=== PATIENT | female | born 1950 | race Caucasian/White ===

== ENCOUNTER 2022-09-01 02:03 | Emergency (ER) | payer MEDICARE, MEDICAID, SELFPAY ==
[2022-09-01 02:05] VITALS: BP 193/85; PULSE 70; RESP 18; TEMP 36.8; O2SAT 98; BMI 30.7
--- NOTE | 2022-09-01 02:40 | RAD_ITS ---
STUDY: X-RAY - RIGHT SHOULDER REASON FOR EXAM: Female, 72 years old. Pain. TECHNIQUE: 3 view(s) of the shoulder. COMPARISON: None. FINDINGS: No visible fracture. No osseous destruction. Alignment anatomic. Mild degenerative changes. Soft tissues unremarkable. RAD/Shoulder min 2 Views IMPRESSION: No acute osseous abnormality. Electronically Signed: Brian Sampson MD at 3:30 EDT ,
[2022-09-01] MEDS: Orphenadrine 60 MG/2 ML Ampul IM (02:50)
[2022-09-01] MEDS: Morphine 4 MG/ML Syringe IM (02:50)
[2022-09-01] MEDS: Ondansetron ODT 4 MG Tablet 8 MG PO (02:54)
--- NOTE | 2022-09-01 03:18 | EDS_ITS ---
HPI History of Present Illness Chief Complaint: Upper Extremity Injury Informant: patient Onset/Context/Timing Onset: Yesterday Context: Sudden Onset (Started while at rest, no movement of anything to trigger the pain that she can recall) Timing: Continuous Current Severity: Severe Maximum Severity: Severe Worsened by: Movement right upper extremity Relieved by: Remaining still Associated Symptoms Associated Symptoms: Negative for Parasthesia, Weakness or Loss of Funtion Narrative Narrative: Patient states she has had pain in her right shoulder/shoulder blade for 2 or 3 years. It is much worse, starting like this 2 days ago. Same pain though. She indicates that it is just medial to the scapula on the right. She does not have anterior shoulder pain. Sometimes the pain radiates into her right upper arm anteriorly, but it is not doing that today. PFSH [facility] Medical History Breast cancer Hypothyroidism Home Medications aspirin 81 mg chewable tablet 81 mg PO DAILY 09/01/22 [History Last Taken Unknown] atorvastatin 20 mg tablet 20 mg PO QHS 09/01/22 [History Last Taken Unknown] cranberry 400 mg capsule 400 mg PO BID 09/01/22 [History Last Taken Unknown] exemestane 25 mg tablet (Aromasin) 25 mg PO DAILY 09/01/22 [History Last Taken Unknown] hydrocodone-acetaminophen 5-325mg 5mg-325mg 1 tab PO Q6H PRN PRN Pain 2 days #8 TABLETS 09/01/22 [Rx Last Taken Unknown] levothyroxine 100 mcg tablet 100 mcg PO DAILY 09/01/22 [History Last Taken Unknown] orphenadrine citrate 100 mg tablet,extended release 100 mg PO Q12H PRN muscle spasm #10 tabs 09/01/22 [Rx Last Taken Unknown] Allergy/AdvReac Type Severity Reaction Status Date / Time No Known Allergies Allergy Verified 09/01/22 02:41 Social History Smoking Status: Never smoker ROS ROS ED Constitutional Constitutional ED: Denies chills or fever(s) Cardiovascular Cardiovascular: Denies chest pain Respiratory/Chest Respiratory/Chest: Denies cough or dyspnea Musculoskeletal Musculoskeletal: Reports extremity pain; Denies neck pain Integumentary Denies Abrasions, rash or wounds Neurologic Neurologic: Denies paresthesias or weakness EXAM Physical Exam Const Vital Signs: 09/01/22 02:05 Temperature 98.3 F Temperature Source Oral Pulse Rate 70 Respiratory Rate 18 Blood Pressure 193/85 H Blood Pressure Mean 121 Pulse Ox 98 Oxygen Delivery Method Room Air Positive well nourished and well developed General Appearance ED: well developed and NAD Neck full ROM and supple Chest Wall inspection of chest normal and palpation of chest normal Resp normal respiratory effort and clear to auscultation bilaterally Cardio regular rate, regular rhythm and no murmurs Cardio Narrative: 2+ right radial pulse Back/Spine normal ROM and normal to inspection Extremity Extremity Narrative: Able to move right shoulder in all directions, limited at extremes of abduction, flexion, extension. Able to passively externally and internally rotate without any difficulty. There is no tenderness in the shoulder joint proper and no deformity. She has tenderness in the rhomboids on the right that is moderate- severe, reproducing her pain, I am also reproducing her pain when I flex her arm forward and up, and abduct her passively, with the pain occurring in the rhomboids on the right. There is no bony scapular tenderness or spinal tenderness. Neuro oriented x3, no focal motor deficits and no sensory deficits noted Sensorium / Orientation: alert Psych Psych Narrative: In pain. Thought processes normal. Mood & Affect: anxious and tearful Skin no wounds Rashes: no rashes MDM MDM MDM Narrative Medical decision making narrative: Patient appears to be uncomfortable and her blood pressure is up. Prior to my evaluating the patient, nursing ordered and had performed an EKG out of concern for this possibly being cardiac since she looks uncomfortable. 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 This seems more musculoskeletal, she seems to be having muscle spasms and pain in the rhomboids. I did obtain x-rays of the right shoulder, 3 views of mitral rotation showed nothing acute such as a fracture or dislocation. Radiology in agreement. She was given Norflex and morphine injections prior to obtaining the x-rays as well as prophylactic Zofran. She felt much better on reevaluation. We will give her prescriptions for some analgesics and muscle relaxers and advised close outpatient follow-up with her PCP. Rhythm Strip Rhythm Strip: Sinus Rhythm Rate: 70 Ectopy: None EKG Initial EKG: Attestation: I personally reviewed and interpreted this EKG as follows: Interpretation: Sinus Rhythm and No Acute Injury Pattern Comments: Leftward axis, otherwise unremarkable EKG Prior EKG tracings: not available for review Prior: No Prior Discharge Plan Triage Chief Complaint: Upper Extremity Injury ED Provider: Ren Viera Dx/Rx/DC Orders Clinical Impression: Strain of right rhomboid muscle, Spasm of thoracic back muscle Instructions: ED Back Spasm, No Trauma Prescriptions: New hydrocodone-acetaminophen [hydrocodone-acetaminophen] 5-325 mg tablet 1 tab PO Q6H PRN PRN (Reason: Pain) 2 Days Qty: 8 0RF orphenadrine citrate 100 mg tablet extended release 100 mg PO Q12H PRN (Reason: muscle spasm) Qty: 10 0RF No Action atorvastatin 20 mg Tablet 20 mg PO QHS levothyroxine 100 mcg Tablet 100 mcg PO DAILY exemestane [Aromasin] 25 mg Tablet 25 mg PO DAILY Rx Instructions: must administer after a meal cranberry 400 mg Capsule 400 mg PO BID Rx Instructions: administer with meals aspirin [Baby Aspirin] 81 mg Tablet,Chewable 81 mg PO DAILY Primary Care Provider: Saúl Wagner Referrals: Saúl Wagner MD [Primary Care Provider] - 3-5 Days if not improving Disposition Disposition: Home, Self Care
[2022-09-01 04:09] VITALS: BP 128/74; PULSE 87; RESP 18; O2SAT 96
== END 2022-09-01 04:19 | disposition home or self-care (01) ==
LOC: ED 03:58
PROVIDERS: Emergency Provider Emergency Medicine; PCP Family Medicine; Visit Provider Emergency Medicine
DX: S46.811A Strain of other muscles, fascia and tendons at shoulder and upper arm level, right arm, initial encounter (principal); M62.830 Muscle spasm of back; E03.9 Hypothyroidism, unspecified; Z79.82 Long term (current) use of aspirin; Z79.899 Other long term (current) drug therapy; X58.XXXA Exposure to other specified factors, initial encounter
CPT/HCPCS: 73030; 93005; 96372; 99283; A4216